=== PATIENT | female | born 1985 | race African-American/Black ===

== ENCOUNTER 2023-03-20 10:31 | Observation (INO) | payer OTHER ==
[2023-03-20 12:09] LABS: BASO % 1.3 % (0-2.0); EOS % 0.5 % (0-4.5); HEMATOCRIT 37.1 % (32.4-45.2); HEMOGLOBIN 12.4 GM/dL (10.7-15.3); LYMPH % 39.2 % (8-40); MCH 27.1 pg (25.7-33.7); MCHC 33.5 g/dl (32.0-36.0); MEAN CELL VOLUME 81.1 fl (80-96); MEAN PLT VOLUME 7.8 fl (7.5-11.1); MONO % 9.4 % (3.8-10.2); NEUT % 49.6 % (42.8-82.8); PLATELET COUNT 350 10^3/uL (134-434); RBC 4.58 M/mm3 (3.60-5.2); RDW 13.8 % (11.6-15.6); WHITE BLOOD COUNT 6.4 K/mm3 (4.0-10.0)
[2023-03-20] MEDS: LACTATED RINGERS SOLUTION 1000 ML INFUS.BAG IV ONE (12:15)
[2023-03-20 12:20] LABS: INR 1.2 (0.83-1.09); PROTHROMBIN TIME (PATIENT) 13.9 SEC (9.7-13.0)
[2023-03-20 12:22] LABS: ACTIVATED PTT 33.6 SECONDS (25.2-36.5)
[2023-03-20 12:52] LABS: CHLORIDE 108 mmol/L (98-107); POTASSIUM 4.5 mmol/L (3.5-5.1); SODIUM 142 mmol/L (136-145)
[2023-03-20 12:55] LABS: ANION GAP 7 mmol/L (4-13); CALCIUM 9.6 mg/dL (8.5-10.1); CO2 27 mmol/L (21-32)
[2023-03-20 12:56] LABS: ALBUMIN 3.5 g/dl (3.4-5.0); BLOOD UREA NITROGEN 13.7 mg/dL (7-18); GLUCOSE,RANDOM 99 mg/dL (74-106)
[2023-03-20 12:58] LABS: CREATININE 0.6 mg/dL (0.55-1.3); SGOT/AST 23 U/L (15-37); SGPT/ALT 22 U/L (13-61)
[2023-03-20 12:59] LABS: PHOSPHOROUS 3.7 mg/dL (2.5-4.9)
[2023-03-20 13:00] LABS: TOT PROT 7.8 g/dl (6.4-8.2)
[2023-03-20 13:01] LABS: ALK PHOS 79 U/L (45-117); BILIRUBIN,TOTAL 0.6 mg/dL (0.2-1)
[2023-03-20] MEDS: D5-1/2NS+20 MEQ KCL - 20 MEQ/1,000 ML INFUS.BAG IV SCH (16:45)
[2023-03-20 21:54] VITALS: BMI 14.2
[2023-03-20] MEDS: HEPARIN NA (PORCINE) 5,000 UNITS/ML 1ML VIAL SQ SCH (22:02)
[2023-03-21 07:11] LABS: BASO % 0.9 % (0-2.0); EOS % 1.1 % (0-4.5); HEMATOCRIT 37.4 % (32.4-45.2); HEMOGLOBIN 12.1 GM/dL (10.7-15.3); LYMPH % 47.8 % (8-40); MCH 26.5 pg (25.7-33.7); MCHC 32.5 g/dl (32.0-36.0); MEAN CELL VOLUME 81.4 fl (80-96); MEAN PLT VOLUME 8.7 fl (7.5-11.1); MONO % 10.3 % (3.8-10.2); NEUT % 39.9 % (42.8-82.8); PLATELET COUNT 326 10^3/uL (134-434); RBC 4.59 M/mm3 (3.60-5.2); RDW 13.9 % (11.6-15.6)
[2023-03-21 07:30] LABS: POTASSIUM 4.3 mmol/L (3.5-5.1)
[2023-03-21 07:37] LABS: CALCIUM 8.6 mg/dL (8.5-10.1)
[2023-03-21 07:38] LABS: ALBUMIN 3.3 g/dl (3.4-5.0); BLOOD UREA NITROGEN 13.4 mg/dL (7-18); MAGNESIUM 1.8 mg/dL (1.8-2.4)
[2023-03-21 07:41] LABS: CREATININE 0.6 mg/dL (0.55-1.3)
[2023-03-21 07:42] LABS: BILIRUBIN,TOTAL 0.4 mg/dL (0.2-1)
[2023-03-21 07:43] LABS: TOT PROT 7.1 g/dl (6.4-8.2)
[2023-03-21 10:41] LABS: EPI CELLS 22 /uL (0-25.1); HYALINE CASTS 0 /uL (0-3.1); PH,URINE 6.5 (5.0-8.0); URINE APPEARANCE CLEAR; URINE BACTERIA 553 /uL (0-1359); URINE BILIRUBIN NEGATIVE (NEGATIVE); URINE COLOR YELLOW; URINE GLUCOSE (UA) 2+ (NEGATIVE); URINE KETONE NEGATIVE (NEGATIVE); URINE LEUK ESTERASE 2+ (NEGATIVE); URINE NITRITE NEGATIVE (NEGATIVE); URINE PROTEIN NEGATIVE (NEGATIVE); URINE RBC 5 /uL (0-23.9); URINE UROBILINOGEN 0.2 mg/dL (0.2-1.0); URINE WBC 85 /uL (0-25.8)
[2023-03-21 11:09] LABS: METHADONE, UR NEGATIVE (NEGATIVE); URINE BENZODIAZEPINES NEGATIVE (NEGATIVE)
[2023-03-21 11:10] LABS: COCAINE, UR NEGATIVE (NEGATIVE); OPIATES, URI NEGATIVE (NEGATIVE); PHENCYCLIDINE,URINE NEGATIVE (NEGATIVE); URINE BARBITURATES NEGATIVE (NEGATIVE)
[2023-03-21 11:11] LABS: URINE AMPHETAMINES NEGATIVE (NEGATIVE)
[2023-03-21 18:56] VITALS: BP 113/70; PULSE 82; RESP 18; TEMP 98.6
== END 2023-03-21 20:42 | disposition left against medical advice (07) ==
LOC: JER 10:31 → INTOOBSV 15:51 → JERBED 15:51 → J4W 21:23
PROVIDERS: ADMIT Family Medicine; ATTEND Family Medicine
PROC: 3E023GC Introduction of Other Therapeutic Substance into Muscle, Percutaneous Approach (ICD-10-PCS; principal; 2023-03-20)
PROC: 3E033GC Introduction of Other Therapeutic Substance into Peripheral Vein, Percutaneous Approach (ICD-10-PCS; 2023-03-20)
PROC: 3E0337Z Introduction of Electrolytic and Water Balance Substance into Peripheral Vein, Percutaneous Approach (ICD-10-PCS; 2023-03-20)
DX: R55 Syncope and collapse (principal)
CPT/HCPCS: 0241U-QW; 36415; 70450-TC; 71045-TC-FY; 72125-TC; 73610-TC-RT-FY; 73630-TC-RT-FY; 80053; 80307; 81003; 82550; 83605; 83735; 84100; 84443; 84484; 84703; 85025; 85610; 85730; 86850; 86900; 86901; 87086; 93005; 93010; 93306-TC; 96361; 96365; 96372; 99285-25; G0378; J1644